=== PATIENT | male | born 1990 | race Caucasian/White ===

== ENCOUNTER 2016-08-16 21:57 | Emergency (ER) | payer BC, OTHER ==
[2016-08-16] MEDS ORDERED: PANTOPRAZOLE 40MG INJ (PROTONIX) (C9113) As Ordered ONE (23:08)
[2016-08-16] MEDS ORDERED: ONDANSETRON 4MG/2ML VIAL (J2405) As Ordered ONE (23:08)
[2016-08-16 23:32] LABS: BASO % 0.1 % (0.0-1.0); EOS # 0.2 K/mm3 (0.0-0.50); EOS % 1.4 % (0.0-3.0); LARGE UNSTAINED CELL # 0.1 K/mm3 (0.0-0.4); LARGE UNSTAINED CELL % 0.6 % (0.0-4.0); LYMPH # 1.2 K/mm3 (1.5-6.5); LYMPH % 7.6 % (24.0-44.0); MEAN CORPUSCULAR HEMOGLOBIN 30.4 pg (27.0-33.0); MEAN CORPUSCULAR HGB CONC 33.9 g/dl (32.0-36.5); MEAN CORPUSCULAR VOLUME 89.7 fl (80.0-96.0); MONO # 0.5 K/mm3 (0.0-0.8); MONO % 3.5 % (0.0-5.0); NEUTROPHILS # 12.3 K/mm3 (1.8-7.7); NEUTROPHILS % 86.8 % (36.0-66.0); PLATELET COUNT, AUTOMATED 259 k/mm3 (150-450); RED CELL DISTRIBUTION WIDTH 12.7 % (11.5-14.5); WHITE BLOOD COUNT 14.2 K/mm3 (4.0-10.0)
[2016-08-17] LABS: ALBUMIN 4.3 GM/DL (3.2-5.2); ALBUMIN/GLOBULIN RATIO 1.13 (1.00-1.93); ALKALINE PHOSPHATASE 71 U/L (45-117); ALT/SGPT 45 U/L (12-78); AMYLASE 58 U/L (25-115); ANION GAP 8 MEQ/L (8-16); AST/SGOT 20 U/L (15-37); BILIRUBIN,DIRECT 0.1 MG/DL (0.0-0.2); BILIRUBIN,TOTAL 0.5 MG/DL (0.2-1.0); BLOOD UREA NITROGEN 14 MG/DL (7-18); CARBON DIOXIDE LEVEL 28 MEQ/L (21-32); CHLORIDE LEVEL 105 MEQ/L (98-107); CREATININE FOR GFR 0.89 MG/DL (0.70-1.30); GLOMERULAR FILTRATION RATE > 60.0 (>60); GLUCOSE, FASTING 112 MG/DL (70-105); POTASSIUM SERUM 3.6 MEQ/L (3.5-5.1); SODIUM LEVEL 141 MEQ/L (136-145); TOTAL PROTEIN 8.1 GM/DL (6.4-8.2)
--- NOTE | 2016-08-17 01:17 | EDDOCDS ---
Physician Documentation [facility] Name: Kaushik Rodriguez Age: 25 yrs Sex: Male : 1990 Arrival Date: 08/16/2016 Time: 21:57 Bed 8 Private MD: NO PRIMARY PHYSICIAN, . Disposition: 08/17/16 01:03 Discharged to Home/Self Care. Impression: Other abdominal pain, Diarrhea, unspecified. - Condition is Stable. - Discharge Instructions: Abdominal Pain, Adult, Food Choices to Help Relieve Diarrhea, Adult, Diarrhea. - Prescriptions for Prilosec 20 mg Oral Capsule - take 1 capsule by ORAL route once daily; 10 capsule. ZOFRAN ODT 4 mg - dissolve 1 tablet by ORAL route 4 times per day As needed do not chew, do not swallow whole; 10 tablet. - Medication Reconciliation, Local Pharmacy Hours form. - Follow up: Private Physician; When: 2 - 3 days; Reason: Recheck today's complaints, Continuance of care. - Problem is new. - Symptoms have improved. - Notes: USE MEDICATIONS INSTRUCTED, FOLLOW UP WITH YOUR DOCTOR, RETURN TO THE ER IF THE SYMPTOMS WORSEN OR BECOME CONCERNING, FOLLOW UP WITH YOUR DOCTOR IN 2-3 DAYS Historical: - Allergies: no known allergies; - Home Meds: 1. Tylenol 325 mg Oral tab - PMHx: none; - PSHx: gynomastia surgery; - Social history: Smoking status: Patient states was never smoker of tobacco. No barriers to communication noted, The patient speaks fluent Anguillan. - Family history: Pt reports contact with co-workers with recent GI illness.. - : The pt / caregiver states he / she is not on anticoagulants. Home medication list is obtained from the patient. - Exposure Risk Screening:: None identified. Vital Signs: 08/16 21:59 BP 135 / 66; Pulse 67; Resp 18; Temp 97.6(O); Pulse Ox 100% on R/A; Weight 97.52 kg / ct3 214.99 lbs (R); Height 6 ft. 0 in. (182.88 cm) (R); Pain 10/10; 22:42 BP 127 / 73 (auto/); mv5 22:43 Pulse 60 MON; Pulse Ox 100% ; mv5 23:12 BP 116 / 68 (auto/); mv5 23:13 Pulse 58 MON; Pulse Ox 96% ; mv5 23:49 BP 127 / 71 (auto/); mv5 23:50 Pulse 58 MON; Pulse Ox 97% ; mv5 08/17 00:44 BP 129 / 73 Supine; Pulse 73; Resp 16; Temp 98.6(TE); Pulse Ox 98% ; mv5 00:44 BP 125 / 72 Sitting; Pulse 81; Pulse Ox 100% ; mv5 00:44 BP 112 / 69 Standing; Pulse 85; Pulse Ox 98% ; mv5 08/16 21:59 Body Mass Index 29.16 (97.52 kg, 182.88 cm) ct3 MDM: 08/16 23:05 Undress patient appropriately for examination ordered. ck7 23:05 IV Saline Lock ordered. ck7 23:05 NS 0.9% 1000 ml IV at bolus once ordered. ck7 23:05 Ondansetron 4 mg IVP once ordered. ck7 23:05 pantoprazole 40 mg IV at bolus once ordered. ck7 23:06 Amylase Ordered. EDMS 23:06 Basic Metabolic Profile Ordered. EDMS 23:06 CBC with Diff Ordered. EDMS 23:06 Lipase Ordered. EDMS 23:06 Liver Profile Ordered. EDMS 23:06 Urinalysis Ordered. EDMS 23:06 Urine Culture Ordered. EDMS 23:06 Abdomen 2 View Ordered. EDMS 23:07 NOTHING BY MOUTH+DIET ordered. EDMS 08/17 00:06 Basic Metabolic Profile Reviewed. ck7 00:06 CBC with Diff Reviewed. ck7 00:06 Urinalysis Reviewed. ck7 00:06 Amylase Reviewed. ck7 00:06 Lipase Reviewed. ck7 00:06 Liver Profile Reviewed. ck7 00:27 Orthostatic VS ordered. ck7 00:27 Fluid Challenge ordered. ck7 01:05 Financial registration complete. [facility] Administered Medications: 08/16 23:23 Drug: NS 0.9% 1000 ml [sodium chloride 0.9 % intravenous solution] Route: IV; Rate: mv5 bolus; Site: right antecubital; 23:23 Drug: Ondansetron 4 mg [ondansetron HCl 2 mg/mL intravenous solution (2 mL)] Route: mv5 IVP; Site: right antecubital; 23:53 Follow up: Response: No Adverse Reaction mv5 23:23 Drug: pantoprazole 40 mg [pantoprazole 40 mg intravenous solution] Route: IV; Rate: mv5 bolus; Site: right antecubital; 23:53 Follow up: Response: No Adverse Reaction mv5 Signatures: Dispatcher [employer] Dulce Kellogg RN RN rs3 Boston Enriquez, RPA-C RPA-Cck7 Belkis Fam Megan, RN RN mv5 MTDD
--- NOTE | 2016-08-17 01:17 | EDDOCDS ---
Nurse's Notes [facility] Name: Kaushik Rodriguez Age: 25 yrs Sex: Male : 1990 Arrival Date: 08/16/2016 Time: 21:57 Bed 8 Private MD: NO PRIMARY PHYSICIAN, . Diagnosis: Other abdominal pain;Diarrhea, unspecified Presentation: 08/16 22:08 Presenting complaint: Patient states: woke up with diarrhea and abdominal pain this rs3 morning. no vomiting. Risk factors: the patient reports not having a history of previous torsion. Adult Sepsis Screening: The patient does not have new or worsening altered mentation. Patient's respiratory rate is less than 22. Systolic blood pressure is greater than 100. Patient has a qSOFA score of 0- Negative Sepsis Screen. Suicide/Homicide risk assessment- the patient denies having any suicidal and/or homicidal ideations and does not present with any other emotional, behavioral or mental health complaints. Status: Patient is not a health services administrator or dependent. Transition of care: patient was not received from another setting of care. 22:08 Acuity: ADEEL Level 3 rs3 22:08 Method Of Arrival: Walkin/Carried/Asstd rs3 Triage Assessment: 22:10 General: Appears in no apparent distress. Pain: Location: abdomen. HIV screening NA for rs3 this visit Offered previously. GI: Reports lower abdominal pain. Historical: - Allergies: no known allergies; - Home Meds: 1. Tylenol 325 mg Oral tab - PMHx: none; - PSHx: gynomastia surgery; - Social history: Smoking status: Patient states was never smoker of tobacco. No barriers to communication noted, The patient speaks fluent Armenian. - Family history: Pt reports contact with co-workers with recent GI illness.. - : The pt / caregiver states he / she is not on anticoagulants. Home medication list is obtained from the patient. - Exposure Risk Screening:: None identified. Screenin:46 Screening information is obtained from the patient. Fall risk: No risks identified. mv5 Assistance ADL's: requires no assistance with activities of daily living. Abuse/DV Screen: The patient / caregiver reports he/she is: not in a situation that causes fear, pain or injury. Nutritional screening: No deficits noted. Advance Directives: There is no active DNR order. home support is adequate. Assessment: 22:46 General: Appears in no apparent distress, well nourished, well groomed. Pain: Location: mv5 right upper quadrant and left upper quadrant Pain currently is 6 out of 10 on a pain scale. Neurological: Level of Consciousness is awake, alert, Oriented to person, place, time. Cardiovascular: Capillary refill < 3 seconds. Respiratory: Airway is patent Respiratory effort is even, unlabored, Respiratory pattern is regular, symmetrical. GI: Abdomen is flat, Pt is actively vomiting Bowel sounds present X 4 quads. Abd is soft X 4 quads Abd is tender to palpation in right upper quadrant and left upper quadrant. : No deficits noted. Derm: Skin is pink, warm & dry. 23:29 General: Appears in no apparent distress, Meds given as ordered. Pt to xray and mv5 returned without incident. Family at bedside.. Respiratory: No deficits noted. Derm: Skin is pink, warm & dry. 08/17 00:58 General: Appears in no apparent distress, Provider in to discuss findings and plan of mv5 care.. Neurological: Level of Consciousness is awake, alert. Respiratory: Airway is patent Respiratory effort is even, unlabored, Respiratory pattern is regular, symmetrical. Derm: Skin is pink, warm & dry. Vital Signs: 08/16 21:59 BP 135 / 66; Pulse 67; Resp 18; Temp 97.6(O); Pulse Ox 100% on R/A; Weight 97.52 kg ct3 (R); Height 6 ft. 0 in. (182.88 cm) (R); Pain 10/10; 22:42 BP 127 / 73 (auto/); mv5 22:43 Pulse 60 MON; Pulse Ox 100% ; mv5 23:12 BP 116 / 68 (auto/); mv5 23:13 Pulse 58 MON; Pulse Ox 96% ; mv5 23:49 BP 127 / 71 (auto/); mv5 23:50 Pulse 58 MON; Pulse Ox 97% ; mv5 08/17 00:44 BP 129 / 73 Supine; Pulse 73; Resp 16; Temp 98.6(TE); Pulse Ox 98% ; mv5 00:44 BP 125 / 72 Sitting; Pulse 81; Pulse Ox 100% ; mv5 00:44 BP 112 / 69 Standing; Pulse 85; Pulse Ox 98% ; mv5 08/16 21:59 Body Mass Index 29.16 (97.52 kg, 182.88 cm) ct3 Vitals: 02 21:59 Log In Time: August 16, 2016 at 21:57. ct3 ED Course: 21:58 Patient visited by Trudy López PCA. ct3 21:58 Patient moved to Waiting ct3 21:59 NO PRIMARY PHYSICIAN, . is Private Physician. ct3 21:59 Patient moved to Pre RCE ct3 22:09 Triage Initiated rs3 22:36 Annette Pelaez RN is Primary Nurse. kc3 22:36 Linn Villeda RN is Primary Nurse. kc3 22:36 Patient moved to 8 kc3 22:40 Boston Enriquez RPA-C is PHCP. ck7 22:40 Tawanda Panda DO is Attending Physician. ck7 22:46 Patient visited by Linn Villeda RN. mv5 22:46 The patient / caregiver is instructed regarding the plan of care and ED course. mv5 22:47 Primary Nurse role handed off by Annette Pelaez RN ar3 22:47 Patient visited by Boston Enriquez RPA-C. ck7 23:24 Amylase Sent. mv5 23:24 Basic Metabolic Profile Sent. mv5 23:24 CBC with Diff Sent. mv5 23:24 Lipase Sent. mv5 23:24 Liver Profile Sent. mv5 23:24 Inserted saline lock: 18 gauge in right antecubital area and blood collected. The mv5 patient tolerated the procedure well. 23:29 Patient visited by Linn Villeda RN. mv5 23:53 Urinalysis Sent. mv5 23:53 Urine Culture Sent. mv5 08/17 00:04 Patient visited by Boston Enriquez RPA-C. ck7 00:37 Patient visited by Lukasz Charles PCA. mdr 00:37 Diet: Patient given water. mdr 01:14 Discontinued intact, bleeding controlled, pressure dressing applied, No mv5 redness/swelling at site. No procedures done that require assistance. Administered Medications: 08/16 23:23 Drug: NS 0.9% 1000 ml [sodium chloride 0.9 % intravenous solution] Route: IV; Rate: mv5 bolus; Site: right antecubital; 23:23 Drug: Ondansetron 4 mg [ondansetron HCl 2 mg/mL intravenous solution (2 mL)] Route: mv5 IVP; Site: right antecubital; 23:53 Follow up: Response: No Adverse Reaction mv5 23:23 Drug: pantoprazole 40 mg [pantoprazole 40 mg intravenous solution] Route: IV; Rate: mv5 bolus; Site: right antecubital; 23:53 Follow up: Response: No Adverse Reaction mv5 Order Results: Lab Order: Amylase; SPEC'M 08/16/16 23:20 Test: AMYLASE; Value: 58; Range: 25-115; Units: U/L; Status: F Lab Order: Basic Metabolic Profile; SPEC'M 08/16/16 23:20 Test: GLUCOSE, FASTING; Value: 112; Range: 70-105; Abnormal: Above high normal; Units: MG/DL; Status: F Test: BLOOD UREA NITROGEN; Value: 14; Range: 7-18; Units: MG/DL; Status: F Test: CREATININE FOR GFR; Value: 0.89; Range: 0.70-1.30; Units: MG/DL; Status: F Test: GLOMERULAR FILTRATION RATE; Value: > 60.0; Range: >60; Status: F Test: SODIUM LEVEL; Value: 141; Range: 136-145; Units: MEQ/L; Status: F Test: POTASSIUM SERUM; Value: 3.6; Range: 3.5-5.1; Units: MEQ/L; Status: F Test: CHLORIDE LEVEL; Value: 105; Range: 98-107; Units: MEQ/L; Status: F Test: CARBON DIOXIDE LEVEL; Value: 28; Range: 21-32; Units: MEQ/L; Status: F Test: ANION GAP; Value: 8; Range: 8-16; Units: MEQ/L; Status: F Test: CALCIUM LEVEL; Value: 9.0; Range: 8.5-10.1; Units: MG/DL; Status: F Test Note: ; Units are mL/min/1.73 m2 Chronic Kidney Disease Staging per NKF: Stage I & II GFR >=60 Normal to Mildly Decreased Stage III GFR 30-59 Moderately Decreased Stage IV GFR 15-29 Severely Decreased Stage V GFR <15 Very Little GFR Left ESRD GFR <15 on OBSTETRICS SCRUB NURSE Lab Order: CBC with Diff; SPEC'M 08/16/16 23:20 Test: WHITE BLOOD COUNT; Value: 14.2; Range: 4.0-10.0; Abnormal: Above high normal; Units: K/mm3; Status: F Test: RED BLOOD COUNT; Value: 5.22; Range: 4.30-6.10; Units: M/mm3; Status: F Test: HEMOGLOBIN; Value: 15.9; Range: 14.0-18.0; Units: g/dl; Status: F Test: HEMATOCRIT; Value: 46.8; Range: 42.0-52.0; Units: %; Status: F Test: MEAN CORPUSCULAR VOLUME; Value: 89.7; Range: 80.0-96.0; Units: fl; Status: F Test: MEAN CORPUSCULAR HEMOGLOBIN; Value: 30.4; Range: 27.0-33.0; Units: pg; Status: F Test: MEAN CORPUSCULAR HGB CONC; Value: 33.9; Range: 32.0-36.5; Units: g/dl; Status: F Test: RED CELL DISTRIBUTION WIDTH; Value: 12.7; Range: 11.5-14.5; Units: %; Status: F Test: PLATELET COUNT, AUTOMATED; Value: 259; Range: 150-450; Units: k/mm3; Status: F Test: NEUTROPHILS %; Value: 86.8; Range: 36.0-66.0; Abnormal: Above high normal; Units: %; Status: F Test: LYMPH %; Value: 7.6; Range: 24.0-44.0; Abnormal: Below low normal; Units: %; Status: F Test: MONO %; Value: 3.5; Range: 0.0-5.0; Units: %; Status: F Test: EOS %; Value: 1.4; Range: 0.0-3.0; Units: %; Status: F Test: BASO %; Value: 0.1; Range: 0.0-1.0; Units: %; Status: F Test: LARGE UNSTAINED CELL %; Value: 0.6; Range: 0.0-4.0; Units: %; Status: F Test: NEUTROPHILS #; Value: 12.3; Range: 1.8-7.7; Abnormal: Above high normal; Units: K/mm3; Status: F Test: LYMPH #; Value: 1.2; Range: 1.5-6.5; Abnormal: Below low normal; Units: K/mm3; Status: F Test: MONO #; Value: 0.5; Range: 0.0-0.8; Units: K/mm3; Status: F Test: EOS #; Value: 0.2; Range: 0.0-0.50; Units: K/mm3; Status: F Test: BASO #; Value: 0.0; Range: 0.0-0.2; Units: K/mm3; Status: F Test: LARGE UNSTAINED CELL #; Value: 0.1; Range: 0.0-0.4; Units: K/mm3; Status: F Lab Order: Lipase; [facility] 08/16/16 23:20 Test: LIPASE; Value: 88; Range: 73-393; Units: U/L; Status: F Lab Order: Liver Profile; [facility] 08/16/16 23:20 Test: AST/SGOT; Value: 20; Range: 15-37; Units: U/L; Status: F Test: ALT/SGPT; Value: 45; Range: 12-78; Units: U/L; Status: F Test: ALKALINE PHOSPHATASE; Value: 71; Range: 45-117; Units: U/L; Status: F Test: BILIRUBIN,TOTAL; Value: 0.5; Range: 0.2-1.0; Units: MG/DL; Status: F Test: BILIRUBIN,DIRECT; Value: 0.1; Range: 0.0-0.2; Units: MG/DL; Status: F Test: TOTAL PROTEIN; Value: 8.1; Range: 6.4-8.2; Units: GM/DL; Status: F Test: ALBUMIN; Value: 4.3; Range: 3.2-5.2; Units: GM/DL; Status: F Test: ALBUMIN/GLOBULIN RATIO; Value: 1.13; Range: 1.00-1.93; Status: F Lab Order: Urinalysis; [facility] 08/16/16 23:20 Test: APPEARANCE, URINE; Value: HAZY; Range: CLEAR; Status: F Test: COLOR, URINE; Value: YELLOW; Range: YELLOW; Status: F Test: PH,URINE; Value: 5.0; Range: 5.0-9.0; Units: UNITS; Status: F Test: SPECIFIC GRAVITY URINE AUTO; Value: 1.027; Range: 1.002-1.035; Status: F Test: PROTEIN, URINE AUTO; Value: NEGATIVE; Range: NEGATIVE; Units: mg/dL; Status: F Test: GLUCOSE, URINE (UA) AUTO; Value: NEGATIVE; Range: NEGATIVE; Units: mg/dL; Status: F Test: KETONE, URINE AUTO; Value: 1+; Range: NEGATIVE; Abnormal: Above high normal; Units: mg/dL; Status: F Test: UROBILINOGEN, URINE AUTO; Value: 0.2; Range: 0.0-2.0; Units: mg/dL; Status: F Test: BILIRUBIN, URINE AUTO; Value: NEGATIVE; Range: NEGATIVE; Status: F Test: NITRITE, URINE AUTO; Value: NEGATIVE; Range: NEGATIVE; Status: F Test: LEUKOCYTE ESTERASE, URINE AUTO; Value: NEGATIVE; Range: NEGATIVE; Status: F Test: BLOOD, URINE BLOOD; Value: 1+; Range: NEGATIVE; Abnormal: Above high normal; Status: F Test: WBC, URINE AUTO; Value: 5; Range: 0-3; Abnormal: Above high normal; Units: /HPF; Status: F Test: RBC, URINE AUTO; Value: 2; Range: 0-3; Units: /HPF; Status: F Test: BACTERIA, URINE AUTO; Value: NEGATIVE; Range: NEGATIVE; Status: F Test: SQUAMOUS EPITHELIAL CELL UR AU; Value: 0; Range: 0-6; Units: /HPF; Status: F Test: MUCUS, URINE; Value: MODERATE; Range: NEGATIVE; Status: F Test: HYALINE CAST, URINE AUTO; Value: 0; Range: 0-1; Units: /LPF; Status: F Outcome: 08/17 01:03 Discharge ordered by Provider. ck7 01:14 Discharge Assessment: Patient awake, alert and oriented x 3. No cognitive and/or mv5 functional deficits noted. Patient verbalized understanding of disposition instructions. patient administered narcotics - no. The following High Risk Discharge criteria are identified: None. Discharged to home. Condition: stable. Demonstrated understanding of Pt was receptive of discharge instructions/ teaching. No special radiology studies were completed. Property sent home with patient. 01:16 Patient left the ED. mv5 Signatures: Dulce Xiong,RN RN rs3 Lilia Herzog, CAFE WORKER CAFE WORKER ar3 López, Trudy, CAFE WORKER CAFE WORKER ct3 Boston Enriquez, RPA-C RPA-Cck7 Lukasz Charles, CAFE WORKER CAFE WORKER mdr Bonnie Hopkins,RN RN kc3 Linn Villeda,RN RN mv5 MTDD
[2016-08-17] MEDS ORDERED: diphenhydrAMINE INJ 50MG/ML VIAL (J1200) As Ordered ONE (01:29)
[2016-08-17] MEDS ORDERED: FAMOTIDINE INJ 20MG/2ML VIAL (S0028) As Ordered ONE (01:29)
[2016-08-17] MEDS ORDERED: methylPREDNISolone INJ 125 MG/2 ML VIAL (J2930) As Ordered ONE (01:29)
--- NOTE | 2016-08-17 02:50 | EDDOCDS ---
Physician Documentation [facility] Name: Kaushik Rodriguez Age: 25 yrs Sex: Male : 1990 Arrival Date: 08/16/2016 Time: 21:57 Bed 8 Private MD: NO PRIMARY PHYSICIAN, . Disposition: 08/17/16 02:38 Discharged to Home/Self Care. Impression: Other abdominal pain, Nausea and vomiting, Diarrhea, unspecified, Allergy status to unspecified drugs, medicaments and biological substances status. - Condition is Stable. - Discharge Instructions: Abdominal Pain, Adult, Food Choices to Help Relieve Diarrhea, Adult, Drug Allergy, Nausea and Vomiting. - Prescriptions for Prilosec 20 mg Oral Capsule - take 1 capsule by ORAL route once daily; 10 capsule. ZOFRAN ODT 4 mg - dissolve 1 tablet by ORAL route 4 times per day As needed do not chew, do not swallow whole; 10 tablet. Prednisone 20 mg Oral Tablet - take 2 tablet by ORAL route once daily for 5 days; 10 tablet. - Medication Reconciliation, Local Pharmacy Hours form. - Follow up: Private Physician; When: 2 - 3 days; Reason: Recheck today's complaints, Continuance of care. - Problem is new. - Symptoms have improved. - Notes: USE PREDNISONE INSTRUCTED, DO NOT USE ZOFRAN WE DO NOT KNOW WHAT MEDICATION YOU HAD YOUR REACTION TO. FOLLOW UP WITH YOUR DOCTOR, RETURN TO THE ER IF THE SYMPTOMS WORSEN OR BECOME CONCERNING, FOLLOW UP WITH YOUR DOCTOR IN 2-3 DAYS Historical: - Allergies: no known allergies; - Home Meds: 1. Tylenol 325 mg Oral tab - PMHx: none; - PSHx: gynomastia surgery; - Social history: Smoking status: Patient states was never smoker of tobacco. No barriers to communication noted, The patient speaks fluent Polish. - Family history: Pt reports contact with co-workers with recent GI illness.. - : The pt / caregiver states he / she is not on anticoagulants. Home medication list is obtained from the patient. - Exposure Risk Screening:: None identified. Vital Signs: 08/16 21:59 BP 135 / 66; Pulse 67; Resp 18; Temp 97.6(O); Pulse Ox 100% on R/A; Weight 97.52 kg / ct3 214.99 lbs (R); Height 6 ft. 0 in. (182.88 cm) (R); Pain 10/10; 22:42 BP 127 / 73 (auto/); mv5 22:43 Pulse 60 MON; Pulse Ox 100% ; mv5 23:12 BP 116 / 68 (auto/); mv5 23:13 Pulse 58 MON; Pulse Ox 96% ; mv5 23:49 BP 127 / 71 (auto/); mv5 23:50 Pulse 58 MON; Pulse Ox 97% ; mv5 02 00:44 BP 129 / 73 Supine; Pulse 73; Resp 16; Temp 98.6(TE); Pulse Ox 98% ; mv5 00:44 BP 125 / 72 Sitting; Pulse 81; Pulse Ox 100% ; mv5 00:44 BP 112 / 69 Standing; Pulse 85; Pulse Ox 98% ; mv5 00:49 BP 114 / 69 (auto/); mv5 00:50 Pulse 66 MON; Pulse Ox 93% ; mv5 01:33 BP 107 / 58 (auto/); mv5 01:34 Pulse 66 MON; Pulse Ox 96% ; mv5 02:03 BP 111 / 59 (auto/); mv5 02:04 Pulse 58 MON; Pulse Ox 99% ; mv5 02:33 BP 123 / 67 (auto/); mv5 02:33 Pulse 62 MON; Pulse Ox 99% ; mv5 02:41 Temp 98.5(TE); Pain 4/10; mdr 08/16 21:59 Body Mass Index 29.16 (97.52 kg, 182.88 cm) ct3 MDM: 08/16 23:05 Undress patient appropriately for examination ordered. ck7 23:05 IV Saline Lock ordered. ck7 23:05 NS 0.9% 1000 ml IV at bolus once ordered. ck7 23:05 Ondansetron 4 mg IVP once ordered. ck7 23:05 pantoprazole 40 mg IV at bolus once ordered. ck7 23:06 Amylase Ordered. EDMS 23:06 Basic Metabolic Profile Ordered. EDMS 23:06 CBC with Diff Ordered. EDMS 23:06 Lipase Ordered. EDMS 23:06 Liver Profile Ordered. EDMS 23:06 Urinalysis Ordered. EDMS 23:06 Urine Culture Ordered. EDMS 23:06 Abdomen 2 View Ordered. EDMS 23:07 NOTHING BY MOUTH+DIET ordered. EDMS 08/17 00:06 Basic Metabolic Profile Reviewed. ck7 00:06 CBC with Diff Reviewed. ck7 00:06 Urinalysis Reviewed. ck7 00:06 Amylase Reviewed. ck7 00:06 Lipase Reviewed. ck7 00:06 Liver Profile Reviewed. ck7 00:27 Orthostatic VS ordered. ck7 00:27 Fluid Challenge ordered. ck7 01:05 Financial registration complete. [facility] 01:25 Solu-MEDROL 125 mg IVP once ordered. ck 01:25 diphenhydrAMINE 50 mg IVP once ordered. ck7 01:25 Famotidine 10 mg IVPB once over 30 mins; dilute in 50mL of NS ordered. ck7 01:25 NS 0.9% 500 ml IV at bolus once ordered. ck7 01:38 [facility] Payment Agreement was scanned into [employer] and attached to record. [facility] Administered Medications: 08/16 23:23 Drug: NS 0.9% 1000 ml [sodium chloride 0.9 % intravenous solution] Route: IV; Rate: mv5 bolus; Site: right antecubital; 08/17 01:17 Follow up: IV Status: Completed infusion mv5 08/16 23:23 Drug: Ondansetron 4 mg [ondansetron HCl 2 mg/mL intravenous solution (2 mL)] Route: mv5 IVP; Site: right antecubital; 23:53 Follow up: Response: No Adverse Reaction mv5 23:23 Drug: pantoprazole 40 mg [pantoprazole 40 mg intravenous solution] Route: IV; Rate: mv5 bolus; Site: right antecubital; 23:53 Follow up: Response: No Adverse Reaction 5 08/17 01:17 Follow up: IV Status: Completed infusion mv5 01:39 Drug: Famotidine 10 mg [famotidine 10 mg/mL intravenous solution] Route: IVPB; Infused mv5 Over: 30 mins; Site: left antecubital; 02:09 Follow up: IV Status: Completed infusion mv5 01:39 Drug: NS 0.9% 500 ml [sodium chloride 0.9 % intravenous solution] Route: IV; Rate: mv5 bolus; Site: left antecubital; 02:30 Follow up: IV Status: Completed infusion mv5 01:40 Drug: Solu-MEDROL 125 mg [Solu-Medrol 500 mg intravenous solution (125 mg)] Route: IVP; mv5 Site: left antecubital; 02:39 Follow up: Response: No Adverse Reaction mv5 01:40 Drug: diphenhydrAMINE 50 mg [diphenhydramine 50 mg/mL injection solution (1 mL)] Route: mv5 IVP; Site: left antecubital; 02:39 Follow up: Response: No Adverse Reaction mv5 Signatures: Dispatcher [employer] Dulce Kellogg RN RN rs3 [place] Enriquez, RPA-C RPA-Cck7 Belkis Fam Megan, RN RN mv5 The chart was reviewed and I authenticate all verbal orders and agree with the evaluation and treatment provided.Attachments: 01:38 [facility] Payment Agreement [facility] MTDD
--- NOTE | 2016-08-17 02:50 | EDDOCDS ---
Nurse's Notes [facility] Name: Kaushik Rodriguez Age: 25 yrs Sex: Male : 1990 Arrival Date: 08/16/2016 Time: 21:57 Bed 8 Private MD: NO PRIMARY PHYSICIAN, . Diagnosis: Other abdominal pain;Nausea and vomiting;Diarrhea, unspecified;Allergy status to unspecified drugs, medicaments and biological substances status Presentation: 08/16 22:08 Presenting complaint: Patient states: woke up with diarrhea and abdominal pain this rs3 morning. no vomiting. Risk factors: the patient reports not having a history of previous torsion. Adult Sepsis Screening: The patient does not have new or worsening altered mentation. Patient's respiratory rate is less than 22. Systolic blood pressure is greater than 100. Patient has a qSOFA score of 0- Negative Sepsis Screen. Suicide/Homicide risk assessment- the patient denies having any suicidal and/or homicidal ideations and does not present with any other emotional, behavioral or mental health complaints. Status: Patient is not a service director or dependent. Transition of care: patient was not received from another setting of care. 22:08 Acuity: ADEEL Level 3 rs3 22:08 Method Of Arrival: Walkin/Carried/Asstd rs3 Triage Assessment: 22:10 General: Appears in no apparent distress. Pain: Location: abdomen. HIV screening NA for rs3 this visit Offered previously. GI: Reports lower abdominal pain. Historical: - Allergies: no known allergies; - Home Meds: 1. Tylenol 325 mg Oral tab - PMHx: none; - PSHx: gynomastia surgery; - Social history: Smoking status: Patient states was never smoker of tobacco. No barriers to communication noted, The patient speaks fluent Cook Islander. - Family history: Pt reports contact with co-workers with recent GI illness.. - : The pt / caregiver states he / she is not on anticoagulants. Home medication list is obtained from the patient. - Exposure Risk Screening:: None identified. Screenin:46 Screening information is obtained from the patient. Fall risk: No risks identified. mv5 Assistance ADL's: requires no assistance with activities of daily living. Abuse/DV Screen: The patient / caregiver reports he/she is: not in a situation that causes fear, pain or injury. Nutritional screening: No deficits noted. Advance Directives: There is no active DNR order. home support is adequate. Assessment: 22:46 General: Appears in no apparent distress, well nourished, well groomed. Pain: Location: mv5 right upper quadrant and left upper quadrant Pain currently is 6 out of 10 on a pain scale. Neurological: Level of Consciousness is awake, alert, Oriented to person, place, time. Cardiovascular: Capillary refill < 3 seconds. Respiratory: Airway is patent Respiratory effort is even, unlabored, Respiratory pattern is regular, symmetrical. GI: Abdomen is flat, Pt is actively vomiting Bowel sounds present X 4 quads. Abd is soft X 4 quads Abd is tender to palpation in right upper quadrant and left upper quadrant. : No deficits noted. Derm: Skin is pink, warm & dry. 23:29 General: Appears in no apparent distress, Meds given as ordered. Pt to xray and mv5 returned without incident. Family at bedside.. Respiratory: No deficits noted. Derm: Skin is pink, warm & dry. 08/17 00:58 General: Appears in no apparent distress, Provider in to discuss findings and plan of mv5 care.. Neurological: Level of Consciousness is awake, alert. Respiratory: Airway is patent Respiratory effort is even, unlabored, Respiratory pattern is regular, symmetrical. Derm: Skin is pink, warm & dry. 01:40 General: Appears in no apparent distress. General: Upon dressing after discharge pt's mv5 noted redness and hives on pt's neck/chest and near axilla. Provider called to bedside. Orders received, meds given as ordered.. Respiratory: Airway is patent Respiratory effort is even, unlabored, Respiratory pattern is regular, symmetrical, Breath sounds are clear bilaterally. Derm: Rash noted that is itchy, Rash concentrated around neck/axilla/arms and pt reports on legs/groin. 02:13 General: Appears in no apparent distress, to be sleeping. Respiratory: Airway is patent mv5 Respiratory effort is even, unlabored, Respiratory pattern is regular, symmetrical. Derm: Skin is pink, warm & dry. Rash noted that is significantly improved. 02:36 General: Appears in no apparent distress, comfortable, Behavior is cooperative, mv5 pleasant. Neurological: Level of Consciousness is awake, alert. Respiratory: Airway is patent Respiratory effort is even, unlabored, Respiratory pattern is regular, symmetrical. Derm: No deficits noted. Vital Signs: 02/12 21:59 BP 135 / 66; Pulse 67; Resp 18; Temp 97.6(O); Pulse Ox 100% on R/A; Weight 97.52 kg ct3 (R); Height 6 ft. 0 in. (182.88 cm) (R); Pain 10/10; 22:42 BP 127 / 73 (auto/); mv5 22:43 Pulse 60 MON; Pulse Ox 100% ; mv5 23:12 BP 116 / 68 (auto/); mv5 23:13 Pulse 58 MON; Pulse Ox 96% ; mv5 23:49 BP 127 / 71 (auto/); mv5 23:50 Pulse 58 MON; Pulse Ox 97% ; mv5 02/13 00:44 BP 129 / 73 Supine; Pulse 73; Resp 16; Temp 98.6(TE); Pulse Ox 98% ; mv5 00:44 BP 125 / 72 Sitting; Pulse 81; Pulse Ox 100% ; mv5 00:44 BP 112 / 69 Standing; Pulse 85; Pulse Ox 98% ; mv5 00:49 BP 114 / 69 (auto/); mv5 00:50 Pulse 66 MON; Pulse Ox 93% ; mv5 01:33 BP 107 / 58 (auto/); mv5 01:34 Pulse 66 MON; Pulse Ox 96% ; mv5 02:03 BP 111 / 59 (auto/); mv5 02:04 Pulse 58 MON; Pulse Ox 99% ; mv5 02:33 BP 123 / 67 (auto/); mv5 02:33 Pulse 62 MON; Pulse Ox 99% ; mv5 02:41 Temp 98.5(TE); Pain 4/10; mdr 02/12 21:59 Body Mass Index 29.16 (97.52 kg, 182.88 cm) ct3 Vitals: 02/12 21:59 Log In Time: August 16, 2016 at 21:57. ct3 ED Course: 21:58 Patient visited by Trudy López PCA. ct3 21:58 Patient moved to Waiting ct3 21:59 NO PRIMARY PHYSICIAN, . is Private Physician. ct3 21:59 Patient moved to Pre RCE ct3 22:09 Triage Initiated rs3 22:36 Annette Pelaez, RN is Primary Nurse. kc3 22:36 Linn Villeda,WOLF is Primary Nurse. kc3 22:36 Patient moved to 8 kc3 22:40 Boston Enriquez RPA-C is PHCP. ck7 22:40 Tawanda Panda DO is Attending Physician. ck7 22:46 Patient visited by Linn Villeda RN. mv5 22:46 The patient / caregiver is instructed regarding the plan of care and ED course. mv5 22:47 Primary Nurse role handed off by Annette Pelaez RN ar3 22:47 Patient visited by Boston Enriquez RPA-C. ck7 23:24 Amylase Sent. mv5 23:24 Basic Metabolic Profile Sent. mv5 23:24 CBC with Diff Sent. mv5 23:24 Lipase Sent. mv5 23:24 Liver Profile Sent. mv5 23:24 Inserted saline lock: 18 gauge in right antecubital area and blood collected. The mv5 patient tolerated the procedure well. 23:29 Patient visited by Linn Villeda RN. mv5 23:53 Urinalysis Sent. mv5 23:53 Urine Culture Sent. mv5 0213 00:04 Patient visited by Boston Enriquez RPA-C. ck7 00:37 Patient visited by Lukasz Charles PCA. mdr 00:37 Diet: Patient given water. mdr 01:14 Discontinued intact, bleeding controlled, pressure dressing applied, No mv5 redness/swelling at site. No procedures done that require assistance. 01:38 [facility] Payment Agreement was scanned into [employer] and attached to record. [facility] 01:43 Patient name changed from Kaushik\S\\S\Leclaire\S\ to Kaushik\S\David\S\Leclaire. EDMS 01:43 Patient visited by Boston Enriquez RPA-C. ck7 01:56 Patient visited by Linn Villeda RN. mv5 02:04 Discontinued intact, bleeding controlled, pressure dressing applied, No mv5 redness/swelling at site. 02:26 Patient visited by Linn Villeda RN. mv5 02:41 Patient visited by Lukasz Charles PCA. mdr Administered Medications: 08/16 23:23 Drug: NS 0.9% 1000 ml [sodium chloride 0.9 % intravenous solution] Route: IV; Rate: mv5 bolus; Site: right antecubital; 08/17 01:17 Follow up: IV Status: Completed infusion mv5 08/16 23:23 Drug: Ondansetron 4 mg [ondansetron HCl 2 mg/mL intravenous solution (2 mL)] Route: mv5 IVP; Site: right antecubital; 23:53 Follow up: Response: No Adverse Reaction mv5 23:23 Drug: pantoprazole 40 mg [pantoprazole 40 mg intravenous solution] Route: IV; Rate: mv5 bolus; Site: right antecubital; 23:53 Follow up: Response: No Adverse Reaction mv5 08/17 01:17 Follow up: IV Status: Completed infusion mv5 01:39 Drug: Famotidine 10 mg [famotidine 10 mg/mL intravenous solution] Route: IVPB; Infused mv5 Over: 30 mins; Site: left antecubital; 02:09 Follow up: IV Status: Completed infusion mv5 01:39 Drug: NS 0.9% 500 ml [sodium chloride 0.9 % intravenous solution] Route: IV; Rate: mv5 bolus; Site: left antecubital; 02:30 Follow up: IV Status: Completed infusion mv5 01:40 Drug: Solu-MEDROL 125 mg [Solu-Medrol 500 mg intravenous solution (125 mg)] Route: IVP; mv5 Site: left antecubital; 02:39 Follow up: Response: No Adverse Reaction mv5 01:40 Drug: diphenhydrAMINE 50 mg [diphenhydramine 50 mg/mL injection solution (1 mL)] Route: mv5 IVP; Site: left antecubital; 02:39 Follow up: Response: No Adverse Reaction mv5 Order Results: Lab Order: Amylase; SPEC'M 08/16/16 23:20 Test: AMYLASE; Value: 58; Range: 25-115; Units: U/L; Status: F Lab Order: Basic Metabolic Profile; SPEC'M 08/16/16 23:20 Test: GLUCOSE, FASTING; Value: 112; Range: 70-105; Abnormal: Above high normal; Units: MG/DL; Status: F Test: BLOOD UREA NITROGEN; Value: 14; Range: 7-18; Units: MG/DL; Status: F Test: CREATININE FOR GFR; Value: 0.89; Range: 0.70-1.30; Units: MG/DL; Status: F Test: GLOMERULAR FILTRATION RATE; Value: > 60.0; Range: >60; Status: F Test: SODIUM LEVEL; Value: 141; Range: 136-145; Units: MEQ/L; Status: F Test: POTASSIUM SERUM; Value: 3.6; Range: 3.5-5.1; Units: MEQ/L; Status: F Test: CHLORIDE LEVEL; Value: 105; Range: 98-107; Units: MEQ/L; Status: F Test: CARBON DIOXIDE LEVEL; Value: 28; Range: 21-32; Units: MEQ/L; Status: F Test: ANION GAP; Value: 8; Range: 8-16; Units: MEQ/L; Status: F Test: CALCIUM LEVEL; Value: 9.0; Range: 8.5-10.1; Units: MG/DL; Status: F Test Note: ; Units are mL/min/1.73 m2 Chronic Kidney Disease Staging per NKF: Stage I & II GFR >=60 Normal to Mildly Decreased Stage III GFR 30-59 Moderately Decreased Stage IV GFR 15-29 Severely Decreased Stage V GFR <15 Very Little GFR Left ESRD GFR <15 on STORE CONSULTANT Lab Order: CBC with Diff; SPEC'M 08/16/16 23:20 Test: WHITE BLOOD COUNT; Value: 14.2; Range: 4.0-10.0; Abnormal: Above high normal; Units: K/mm3; Status: F Test: RED BLOOD COUNT; Value: 5.22; Range: 4.30-6.10; Units: M/mm3; Status: F Test: HEMOGLOBIN; Value: 15.9; Range: 14.0-18.0; Units: g/dl; Status: F Test: HEMATOCRIT; Value: 46.8; Range: 42.0-52.0; Units: %; Status: F Test: MEAN CORPUSCULAR VOLUME; Value: 89.7; Range: 80.0-96.0; Units: fl; Status: F Test: MEAN CORPUSCULAR HEMOGLOBIN; Value: 30.4; Range: 27.0-33.0; Units: pg; Status: F Test: MEAN CORPUSCULAR HGB CONC; Value: 33.9; Range: 32.0-36.5; Units: g/dl; Status: F Test: RED CELL DISTRIBUTION WIDTH; Value: 12.7; Range: 11.5-14.5; Units: %; Status: F Test: PLATELET COUNT, AUTOMATED; Value: 259; Range: 150-450; Units: k/mm3; Status: F Test: NEUTROPHILS %; Value: 86.8; Range: 36.0-66.0; Abnormal: Above high normal; Units: %; Status: F Test: LYMPH %; Value: 7.6; Range: 24.0-44.0; Abnormal: Below low normal; Units: %; Status: F Test: MONO %; Value: 3.5; Range: 0.0-5.0; Units: %; Status: F Test: EOS %; Value: 1.4; Range: 0.0-3.0; Units: %; Status: F Test: BASO %; Value: 0.1; Range: 0.0-1.0; Units: %; Status: F Test: LARGE UNSTAINED CELL %; Value: 0.6; Range: 0.0-4.0; Units: %; Status: F Test: NEUTROPHILS #; Value: 12.3; Range: 1.8-7.7; Abnormal: Above high normal; Units: K/mm3; Status: F Test: LYMPH #; Value: 1.2; Range: 1.5-6.5; Abnormal: Below low normal; Units: K/mm3; Status: F Test: MONO #; Value: 0.5; Range: 0.0-0.8; Units: K/mm3; Status: F Test: EOS #; Value: 0.2; Range: 0.0-0.50; Units: K/mm3; Status: F Test: BASO #; Value: 0.0; Range: 0.0-0.2; Units: K/mm3; Status: F Test: LARGE UNSTAINED CELL #; Value: 0.1; Range: 0.0-0.4; Units: K/mm3; Status: F Lab Order: Lipase; SPEC' 08/16/16 23:20 Test: LIPASE; Value: 88; Range: 73-393; Units: U/L; Status: F Lab Order: Liver Profile; SPEC' 08/16/16 23:20 Test: AST/SGOT; Value: 20; Range: 15-37; Units: U/L; Status: F Test: ALT/SGPT; Value: 45; Range: 12-78; Units: U/L; Status: F Test: ALKALINE PHOSPHATASE; Value: 71; Range: 45-117; Units: U/L; Status: F Test: BILIRUBIN,TOTAL; Value: 0.5; Range: 0.2-1.0; Units: MG/DL; Status: F Test: BILIRUBIN,DIRECT; Value: 0.1; Range: 0.0-0.2; Units: MG/DL; Status: F Test: TOTAL PROTEIN; Value: 8.1; Range: 6.4-8.2; Units: GM/DL; Status: F Test: ALBUMIN; Value: 4.3; Range: 3.2-5.2; Units: GM/DL; Status: F Test: ALBUMIN/GLOBULIN RATIO; Value: 1.13; Range: 1.00-1.93; Status: F Lab Order: Urinalysis; SPEC'M 08/16/16 23:20 Test: APPEARANCE, URINE; Value: HAZY; Range: CLEAR; Status: F Test: COLOR, URINE; Value: YELLOW; Range: YELLOW; Status: F Test: PH,URINE; Value: 5.0; Range: 5.0-9.0; Units: UNITS; Status: F Test: SPECIFIC GRAVITY URINE AUTO; Value: 1.027; Range: 1.002-1.035; Status: F Test: PROTEIN, URINE AUTO; Value: NEGATIVE; Range: NEGATIVE; Units: mg/dL; Status: F Test: GLUCOSE, URINE (UA) AUTO; Value: NEGATIVE; Range: NEGATIVE; Units: mg/dL; Status: F Test: KETONE, URINE AUTO; Value: 1+; Range: NEGATIVE; Abnormal: Above high normal; Units: mg/dL; Status: F Test: UROBILINOGEN, URINE AUTO; Value: 0.2; Range: 0.0-2.0; Units: mg/dL; Status: F Test: BILIRUBIN, URINE AUTO; Value: NEGATIVE; Range: NEGATIVE; Status: F Test: NITRITE, URINE AUTO; Value: NEGATIVE; Range: NEGATIVE; Status: F Test: LEUKOCYTE ESTERASE, URINE AUTO; Value: NEGATIVE; Range: NEGATIVE; Status: F Test: BLOOD, URINE BLOOD; Value: 1+; Range: NEGATIVE; Abnormal: Above high normal; Status: F Test: WBC, URINE AUTO; Value: 5; Range: 0-3; Abnormal: Above high normal; Units: /HPF; Status: F Test: RBC, URINE AUTO; Value: 2; Range: 0-3; Units: /HPF; Status: F Test: BACTERIA, URINE AUTO; Value: NEGATIVE; Range: NEGATIVE; Status: F Test: SQUAMOUS EPITHELIAL CELL UR AU; Value: 0; Range: 0-6; Units: /HPF; Status: F Test: MUCUS, URINE; Value: MODERATE; Range: NEGATIVE; Status: F Test: HYALINE CAST, URINE AUTO; Value: 0; Range: 0-1; Units: /LPF; Status: F Outcome: 01:03 Discharge ordered by Provider. ck7 01:14 Discharge Assessment: Patient awake, alert and oriented x 3. No cognitive and/or mv5 functional deficits noted. Patient verbalized understanding of disposition instructions. patient administered narcotics - no. The following High Risk Discharge criteria are identified: None. Discharged to home. Condition: stable. Demonstrated understanding of Pt was receptive of discharge instructions/ teaching. No special radiology studies were completed. Property sent home with patient. 02:38 Discharge ordered by Provider. ck7 02:48 Discharge Assessment: Patient awake, alert and oriented x 3. No cognitive and/or mv5 functional deficits noted. Patient verbalized understanding of disposition instructions. patient administered narcotics - no. The following High Risk Discharge criteria are identified: None. Discharged to home with family. Condition: stable. Demonstrated understanding of Pt was receptive of discharge instructions/ teaching. No special radiology studies were completed. Property sent home with patient. 02:49 Patient left the ED. mv5 Signatures: Dispatcher [employer] EDMS Dulce XiongRN RN rs3 Lilia Herzog, SERVICER TRAVEL TRAILERS SERVICER TRAVEL TRAILERS ar3 Trudy López, SERVICER TRAVEL TRAILERS SERVICER TRAVEL TRAILERS ct3 Boston Enriquez, MILLI-C [id number] Belkis Fam [facility] Lukasz Charles, SERVICER TRAVEL TRAILERS SERVICER TRAVEL TRAILERS Bonnie Arroyo RN RN kc3 Linn Villeda,RN RN mv5 Corrections: (The following items were deleted from the chart) 02:38 01:16 Patient left the ED. mv5 mv5 MTDD
--- NOTE | 2016-08-17 08:08 | REP ---
Clinical: Acute abdominal pain. Technique: Upright view of the chest with supine and upright views of the abdomen and pelvis. Findings: Frontal upright view of the chest demonstrates no acute cardiopulmonary process or free air below the diaphragm to suspect pneumoperitoneum. Supine and upright views of the abdomen and pelvis demonstrate nonspecific bowel gas pattern without obstruction or perforation. No organomegaly. No abnormal calcifications. Skeletal structures normal for age. Impression: Nonspecific bowel gas pattern. Signed by Ozzie Barragan MD 08/17/2016 07:59 A
--- NOTE | 2016-08-19 03:50 | EDDOCDS ---
Physician Documentation [facility] Name: Kaushik Rodriguez Age: 25 yrs Sex: Male : 1990 Arrival Date: 08/16/2016 Time: 21:57 Bed 8 Private MD: NO PRIMARY PHYSICIAN, . Disposition: 08/17/16 02:38 Discharged to Home/Self Care. Impression: Other abdominal pain, Nausea and vomiting, Diarrhea, unspecified, Allergy status to unspecified drugs, medicaments and biological substances status. - Condition is Stable. - Discharge Instructions: Abdominal Pain, Adult, Food Choices to Help Relieve Diarrhea, Adult, Drug Allergy, Nausea and Vomiting. - Prescriptions for Prilosec 20 mg Oral Capsule - take 1 capsule by ORAL route once daily; 10 capsule. ZOFRAN ODT 4 mg - dissolve 1 tablet by ORAL route 4 times per day As needed do not chew, do not swallow whole; 10 tablet. Prednisone 20 mg Oral Tablet - take 2 tablet by ORAL route once daily for 5 days; 10 tablet. - Medication Reconciliation, Local Pharmacy Hours form. - Follow up: Private Physician; When: 2 - 3 days; Reason: Recheck today's complaints, Continuance of care. - Problem is new. - Symptoms have improved. - Notes: USE PREDNISONE INSTRUCTED, DO NOT USE ZOFRAN WE DO NOT KNOW WHAT MEDICATION YOU HAD YOUR REACTION TO. FOLLOW UP WITH YOUR DOCTOR, RETURN TO THE ER IF THE SYMPTOMS WORSEN OR BECOME CONCERNING, FOLLOW UP WITH YOUR DOCTOR IN 2-3 DAYS Historical: - Allergies: no known allergies; - Home Meds: 1. Tylenol 325 mg Oral tab - PMHx: none; - PSHx: gynomastia surgery; - Social history: Smoking status: Patient states was never smoker of tobacco. No barriers to communication noted, The patient speaks fluent Mongolian. - Family history: Pt reports contact with co-workers with recent GI illness.. - : The pt / caregiver states he / she is not on anticoagulants. Home medication list is obtained from the patient. - Exposure Risk Screening:: None identified. Vital Signs: 08/16 21:59 BP 135 / 66; Pulse 67; Resp 18; Temp 97.6(O); Pulse Ox 100% on R/A; Weight 97.52 kg / ct3 214.99 lbs (R); Height 6 ft. 0 in. (182.88 cm) (R); Pain 10/10; 22:42 BP 127 / 73 (auto/); mv5 22:43 Pulse 60 MON; Pulse Ox 100% ; mv5 23:12 BP 116 / 68 (auto/); mv5 23:13 Pulse 58 MON; Pulse Ox 96% ; mv5 23:49 BP 127 / 71 (auto/); mv5 23:50 Pulse 58 MON; Pulse Ox 97% ; mv5 02 00:44 BP 129 / 73 Supine; Pulse 73; Resp 16; Temp 98.6(TE); Pulse Ox 98% ; mv5 00:44 BP 125 / 72 Sitting; Pulse 81; Pulse Ox 100% ; mv5 00:44 BP 112 / 69 Standing; Pulse 85; Pulse Ox 98% ; mv5 00:49 BP 114 / 69 (auto/); mv5 00:50 Pulse 66 MON; Pulse Ox 93% ; mv5 01:33 BP 107 / 58 (auto/); mv5 01:34 Pulse 66 MON; Pulse Ox 96% ; mv5 02:03 BP 111 / 59 (auto/); mv5 02:04 Pulse 58 MON; Pulse Ox 99% ; mv5 02:33 BP 123 / 67 (auto/); mv5 02:33 Pulse 62 MON; Pulse Ox 99% ; mv5 02:41 Temp 98.5(TE); Pain 4/10; mdr 08/16 21:59 Body Mass Index 29.16 (97.52 kg, 182.88 cm) ct3 MDM: 08/16 23:05 Undress patient appropriately for examination ordered. ck7 23:05 IV Saline Lock ordered. ck7 23:05 NS 0.9% 1000 ml IV at bolus once ordered. ck7 23:05 Ondansetron 4 mg IVP once ordered. ck7 23:05 pantoprazole 40 mg IV at bolus once ordered. ck7 23:06 Amylase Ordered. EDMS 23:06 Basic Metabolic Profile Ordered. EDMS 23:06 CBC with Diff Ordered. EDMS 23:06 Lipase Ordered. EDMS 23:06 Liver Profile Ordered. EDMS 23:06 Urinalysis Ordered. EDMS 23:06 Urine Culture Ordered. EDMS 23:06 Abdomen 2 View Ordered. EDMS 23:07 NOTHING BY MOUTH+DIET ordered. EDMS 08/17 00:06 Basic Metabolic Profile Reviewed. ck7 00:06 CBC with Diff Reviewed. ck7 00:06 Urinalysis Reviewed. ck7 00:06 Amylase Reviewed. ck7 00:06 Lipase Reviewed. ck7 00:06 Liver Profile Reviewed. ck7 00:27 Orthostatic VS ordered. ck7 00:27 Fluid Challenge ordered. ck7 01:05 Financial registration complete. [facility] 01:25 Solu-MEDROL 125 mg IVP once ordered. ck7 01:25 diphenhydrAMINE 50 mg IVP once ordered. ck7 01:25 Famotidine 10 mg IVPB once over 30 mins; dilute in 50mL of NS ordered. ck7 01:25 NS 0.9% 500 ml IV at bolus once ordered. ck7 01:38 [facility] Payment Agreement was scanned into [email or web address] and attached to record. [facility] 12:31 T-Sheet-- Draft Copy was scanned into [email or web address] and attached to record. gb Administered Medications: 08/16 23:23 Drug: NS 0.9% 1000 ml [sodium chloride 0.9 % intravenous solution] Route: IV; Rate: mv5 bolus; Site: right antecubital; 08/17 01:17 Follow up: IV Status: Completed infusion mv5 08/16 23:23 Drug: Ondansetron 4 mg [ondansetron HCl 2 mg/mL intravenous solution (2 mL)] Route: mv5 IVP; Site: right antecubital; 23:53 Follow up: Response: No Adverse Reaction mv5 23:23 Drug: pantoprazole 40 mg [pantoprazole 40 mg intravenous solution] Route: IV; Rate: mv5 bolus; Site: right antecubital; 23:53 Follow up: Response: No Adverse Reaction 5 08/17 01:17 Follow up: IV Status: Completed infusion mv5 01:39 Drug: Famotidine 10 mg [famotidine 10 mg/mL intravenous solution] Route: IVPB; Infused mv5 Over: 30 mins; Site: left antecubital; 02:09 Follow up: IV Status: Completed infusion mv5 01:39 Drug: NS 0.9% 500 ml [sodium chloride 0.9 % intravenous solution] Route: IV; Rate: mv5 bolus; Site: left antecubital; 02:30 Follow up: IV Status: Completed infusion mv5 01:40 Drug: Solu-MEDROL 125 mg [Solu-Medrol 500 mg intravenous solution (125 mg)] Route: IVP; mv5 Site: left antecubital; 02:39 Follow up: Response: No Adverse Reaction mv5 01:40 Drug: diphenhydrAMINE 50 mg [diphenhydramine 50 mg/mL injection solution (1 mL)] Route: mv5 IVP; Site: left antecubital; 02:39 Follow up: Response: No Adverse Reaction mv5 Signatures: Dispatcher [employer] EDMigdalia Tristan, Reg Reg gb Dulce Xiong,RN RN rs3 [place] Enriquez, RPA-C [id number] Belkis Fam MeganRN RN mv5 The chart was reviewed and I authenticate all verbal orders and agree with the evaluation and treatment provided.Attachments: 01:38 [facility] Payment Agreement [facility] 12:31 T-Sheet-- Draft Copy Chart Complete MTDD
--- NOTE | 2016-08-19 03:50 | EDDOCDS ---
Nurse's Notes [facility] Name: Kaushik Rodriguez Age: 25 yrs Sex: Male : 1990 Arrival Date: 08/16/2016 Time: 21:57 Bed 8 Private MD: NO PRIMARY PHYSICIAN, . Diagnosis: Other abdominal pain;Nausea and vomiting;Diarrhea, unspecified;Allergy status to unspecified drugs, medicaments and biological substances status Presentation: 08/16 22:08 Presenting complaint: Patient states: woke up with diarrhea and abdominal pain this rs3 morning. no vomiting. Risk factors: the patient reports not having a history of previous torsion. Adult Sepsis Screening: The patient does not have new or worsening altered mentation. Patient's respiratory rate is less than 22. Systolic blood pressure is greater than 100. Patient has a qSOFA score of 0- Negative Sepsis Screen. Suicide/Homicide risk assessment- the patient denies having any suicidal and/or homicidal ideations and does not present with any other emotional, behavioral or mental health complaints. Status: Patient is not a care services manager or dependent. Transition of care: patient was not received from another setting of care. 22:08 Acuity: ADEEL Level 3 rs3 22:08 Method Of Arrival: Walkin/Carried/Asstd rs3 Triage Assessment: 22:10 General: Appears in no apparent distress. Pain: Location: abdomen. HIV screening NA for rs3 this visit Offered previously. GI: Reports lower abdominal pain. Historical: - Allergies: no known allergies; - Home Meds: 1. Tylenol 325 mg Oral tab - PMHx: none; - PSHx: gynomastia surgery; - Social history: Smoking status: Patient states was never smoker of tobacco. No barriers to communication noted, The patient speaks fluent Jamaican. - Family history: Pt reports contact with co-workers with recent GI illness.. - : The pt / caregiver states he / she is not on anticoagulants. Home medication list is obtained from the patient. - Exposure Risk Screening:: None identified. Screenin:46 Screening information is obtained from the patient. Fall risk: No risks identified. mv5 Assistance ADL's: requires no assistance with activities of daily living. Abuse/DV Screen: The patient / caregiver reports he/she is: not in a situation that causes fear, pain or injury. Nutritional screening: No deficits noted. Advance Directives: There is no active DNR order. home support is adequate. Assessment: 22:46 General: Appears in no apparent distress, well nourished, well groomed. Pain: Location: mv5 right upper quadrant and left upper quadrant Pain currently is 6 out of 10 on a pain scale. Neurological: Level of Consciousness is awake, alert, Oriented to person, place, time. Cardiovascular: Capillary refill < 3 seconds. Respiratory: Airway is patent Respiratory effort is even, unlabored, Respiratory pattern is regular, symmetrical. GI: Abdomen is flat, Pt is actively vomiting Bowel sounds present X 4 quads. Abd is soft X 4 quads Abd is tender to palpation in right upper quadrant and left upper quadrant. : No deficits noted. Derm: Skin is pink, warm & dry. 23:29 General: Appears in no apparent distress, Meds given as ordered. Pt to xray and mv5 returned without incident. Family at bedside.. Respiratory: No deficits noted. Derm: Skin is pink, warm & dry. 08/17 00:58 General: Appears in no apparent distress, Provider in to discuss findings and plan of mv5 care.. Neurological: Level of Consciousness is awake, alert. Respiratory: Airway is patent Respiratory effort is even, unlabored, Respiratory pattern is regular, symmetrical. Derm: Skin is pink, warm & dry. 01:40 General: Appears in no apparent distress. General: Upon dressing after discharge pt's mv5 noted redness and hives on pt's neck/chest and near axilla. Provider called to bedside. Orders received, meds given as ordered.. Respiratory: Airway is patent Respiratory effort is even, unlabored, Respiratory pattern is regular, symmetrical, Breath sounds are clear bilaterally. Derm: Rash noted that is itchy, Rash concentrated around neck/axilla/arms and pt reports on legs/groin. 02:13 General: Appears in no apparent distress, to be sleeping. Respiratory: Airway is patent mv5 Respiratory effort is even, unlabored, Respiratory pattern is regular, symmetrical. Derm: Skin is pink, warm & dry. Rash noted that is significantly improved. 02:36 General: Appears in no apparent distress, comfortable, Behavior is cooperative, mv5 pleasant. Neurological: Level of Consciousness is awake, alert. Respiratory: Airway is patent Respiratory effort is even, unlabored, Respiratory pattern is regular, symmetrical. Derm: No deficits noted. Vital Signs: 02/12 21:59 BP 135 / 66; Pulse 67; Resp 18; Temp 97.6(O); Pulse Ox 100% on R/A; Weight 97.52 kg ct3 (R); Height 6 ft. 0 in. (182.88 cm) (R); Pain 10/10; 22:42 BP 127 / 73 (auto/); mv5 22:43 Pulse 60 MON; Pulse Ox 100% ; mv5 23:12 BP 116 / 68 (auto/); mv5 23:13 Pulse 58 MON; Pulse Ox 96% ; mv5 23:49 BP 127 / 71 (auto/); mv5 23:50 Pulse 58 MON; Pulse Ox 97% ; mv5 02/13 00:44 BP 129 / 73 Supine; Pulse 73; Resp 16; Temp 98.6(TE); Pulse Ox 98% ; mv5 00:44 BP 125 / 72 Sitting; Pulse 81; Pulse Ox 100% ; mv5 00:44 BP 112 / 69 Standing; Pulse 85; Pulse Ox 98% ; mv5 00:49 BP 114 / 69 (auto/); mv5 00:50 Pulse 66 MON; Pulse Ox 93% ; mv5 01:33 BP 107 / 58 (auto/); mv5 01:34 Pulse 66 MON; Pulse Ox 96% ; mv5 02:03 BP 111 / 59 (auto/); mv5 02:04 Pulse 58 MON; Pulse Ox 99% ; mv5 02:33 BP 123 / 67 (auto/); mv5 02:33 Pulse 62 MON; Pulse Ox 99% ; mv5 02:41 Temp 98.5(TE); Pain 4/10; mdr 02/12 21:59 Body Mass Index 29.16 (97.52 kg, 182.88 cm) ct3 Vitals: 02/12 21:59 Log In Time: August 16, 2016 at 21:57. ct3 ED Course: 21:58 Patient visited by Trudy Lóepz PCA. ct3 21:58 Patient moved to Waiting ct3 21:59 NO PRIMARY PHYSICIAN, . is Private Physician. ct3 21:59 Patient moved to Pre RCE ct3 22:09 Triage Initiated rs3 22:36 Annette Pelaez, RN is Primary Nurse. kc3 22:36 Linn Villeda,WOLF is Primary Nurse. kc3 22:36 Patient moved to 8 kc3 22:40 Boston Enriquez RPA-C is PHCP. ck7 22:40 Tawanda Panda DO is Attending Physician. ck7 22:46 Patient visited by iLnn Villeda RN. mv5 22:46 The patient / caregiver is instructed regarding the plan of care and ED course. mv5 22:47 Primary Nurse role handed off by Annette Pelaez RN ar3 22:47 Patient visited by Boston Enriquez RPA-C. ck7 23:24 Amylase Sent. mv5 23:24 Basic Metabolic Profile Sent. mv5 23:24 CBC with Diff Sent. mv5 23:24 Lipase Sent. mv5 23:24 Liver Profile Sent. mv5 23:24 Inserted saline lock: 18 gauge in right antecubital area and blood collected. The mv5 patient tolerated the procedure well. 23:29 Patient visited by Linn Villeda RN. mv5 23:53 Urinalysis Sent. mv5 23:53 Urine Culture Sent. mv5 0213 00:04 Patient visited by Bostno Enriquez RPA-C. ck7 00:37 Patient visited by Lukasz Charles PCA. mdr 00:37 Diet: Patient given water. mdr 01:14 Discontinued intact, bleeding controlled, pressure dressing applied, No mv5 redness/swelling at site. No procedures done that require assistance. 01:38 [facility] Payment Agreement was scanned into [employer] and attached to record. [facility] 01:43 Patient name changed from Kaushik\S\\S\Leclaire\S\ to Kaushik\S\David\S\Leclaire. EDMS 01:43 Patient visited by Boston Enriquez RPA-C. ck7 01:56 Patient visited by Linn Villeda RN. mv5 02:04 Discontinued intact, bleeding controlled, pressure dressing applied, No mv5 redness/swelling at site. 02:26 Patient visited by Linn Villeda RN. mv5 02:41 Patient visited by Lukasz Charles PCA. mdr 08:10 Abdomen 2 View Returned. EDMS 12:31 T-Sheet-- Draft Copy was scanned into [employer] and attached to record. gb Administered Medications: 08/16 23:23 Drug: NS 0.9% 1000 ml [sodium chloride 0.9 % intravenous solution] Route: IV; Rate: mv5 bolus; Site: right antecubital; 08/17 01:17 Follow up: IV Status: Completed infusion mv5 08/16 23:23 Drug: Ondansetron 4 mg [ondansetron HCl 2 mg/mL intravenous solution (2 mL)] Route: mv5 IVP; Site: right antecubital; 23:53 Follow up: Response: No Adverse Reaction mv5 23:23 Drug: pantoprazole 40 mg [pantoprazole 40 mg intravenous solution] Route: IV; Rate: mv5 bolus; Site: right antecubital; 23:53 Follow up: Response: No Adverse Reaction mv5 08/17 01:17 Follow up: IV Status: Completed infusion mv5 01:39 Drug: Famotidine 10 mg [famotidine 10 mg/mL intravenous solution] Route: IVPB; Infused mv5 Over: 30 mins; Site: left antecubital; 02:09 Follow up: IV Status: Completed infusion mv5 01:39 Drug: NS 0.9% 500 ml [sodium chloride 0.9 % intravenous solution] Route: IV; Rate: mv5 bolus; Site: left antecubital; 02:30 Follow up: IV Status: Completed infusion mv5 01:40 Drug: Solu-MEDROL 125 mg [Solu-Medrol 500 mg intravenous solution (125 mg)] Route: IVP; mv5 Site: left antecubital; 02:39 Follow up: Response: No Adverse Reaction mv5 01:40 Drug: diphenhydrAMINE 50 mg [diphenhydramine 50 mg/mL injection solution (1 mL)] Route: mv5 IVP; Site: left antecubital; 02:39 Follow up: Response: No Adverse Reaction mv5 Order Results: Lab Order: Amylase; SPEC'M 08/16/16 23:20 Test: AMYLASE; Value: 58; Range: 25-115; Units: U/L; Status: F Lab Order: Basic Metabolic Profile; SPEC'M 08/16/16 23:20 Test: GLUCOSE, FASTING; Value: 112; Range: 70-105; Abnormal: Above high normal; Units: MG/DL; Status: F Test: BLOOD UREA NITROGEN; Value: 14; Range: 7-18; Units: MG/DL; Status: F Test: CREATININE FOR GFR; Value: 0.89; Range: 0.70-1.30; Units: MG/DL; Status: F Test: GLOMERULAR FILTRATION RATE; Value: > 60.0; Range: >60; Status: F Test: SODIUM LEVEL; Value: 141; Range: 136-145; Units: MEQ/L; Status: F Test: POTASSIUM SERUM; Value: 3.6; Range: 3.5-5.1; Units: MEQ/L; Status: F Test: CHLORIDE LEVEL; Value: 105; Range: 98-107; Units: MEQ/L; Status: F Test: CARBON DIOXIDE LEVEL; Value: 28; Range: 21-32; Units: MEQ/L; Status: F Test: ANION GAP; Value: 8; Range: 8-16; Units: MEQ/L; Status: F Test: CALCIUM LEVEL; Value: 9.0; Range: 8.5-10.1; Units: MG/DL; Status: F Test Note: ; Units are mL/min/1.73 m2 Chronic Kidney Disease Staging per NKF: Stage I & II GFR >=60 Normal to Mildly Decreased Stage III GFR 30-59 Moderately Decreased Stage IV GFR 15-29 Severely Decreased Stage V GFR <15 Very Little GFR Left ESRD GFR <15 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 Lab Order: CBC with Diff; SPEC'M 08/16/16 23:20 Test: WHITE BLOOD COUNT; Value: 14.2; Range: 4.0-10.0; Abnormal: Above high normal; Units: K/mm3; Status: F Test: RED BLOOD COUNT; Value: 5.22; Range: 4.30-6.10; Units: M/mm3; Status: F Test: HEMOGLOBIN; Value: 15.9; Range: 14.0-18.0; Units: g/dl; Status: F Test: HEMATOCRIT; Value: 46.8; Range: 42.0-52.0; Units: %; Status: F Test: MEAN CORPUSCULAR VOLUME; Value: 89.7; Range: 80.0-96.0; Units: fl; Status: F Test: MEAN CORPUSCULAR HEMOGLOBIN; Value: 30.4; Range: 27.0-33.0; Units: pg; Status: F Test: MEAN CORPUSCULAR HGB CONC; Value: 33.9; Range: 32.0-36.5; Units: g/dl; Status: F Test: RED CELL DISTRIBUTION WIDTH; Value: 12.7; Range: 11.5-14.5; Units: %; Status: F Test: PLATELET COUNT, AUTOMATED; Value: 259; Range: 150-450; Units: k/mm3; Status: F Test: NEUTROPHILS %; Value: 86.8; Range: 36.0-66.0; Abnormal: Above high normal; Units: %; Status: F Test: LYMPH %; Value: 7.6; Range: 24.0-44.0; Abnormal: Below low normal; Units: %; Status: F Test: MONO %; Value: 3.5; Range: 0.0-5.0; Units: %; Status: F Test: EOS %; Value: 1.4; Range: 0.0-3.0; Units: %; Status: F Test: BASO %; Value: 0.1; Range: 0.0-1.0; Units: %; Status: F Test: LARGE UNSTAINED CELL %; Value: 0.6; Range: 0.0-4.0; Units: %; Status: F Test: NEUTROPHILS #; Value: 12.3; Range: 1.8-7.7; Abnormal: Above high normal; Units: K/mm3; Status: F Test: LYMPH #; Value: 1.2; Range: 1.5-6.5; Abnormal: Below low normal; Units: K/mm3; Status: F Test: MONO #; Value: 0.5; Range: 0.0-0.8; Units: K/mm3; Status: F Test: EOS #; Value: 0.2; Range: 0.0-0.50; Units: K/mm3; Status: F Test: BASO #; Value: 0.0; Range: 0.0-0.2; Units: K/mm3; Status: F Test: LARGE UNSTAINED CELL #; Value: 0.1; Range: 0.0-0.4; Units: K/mm3; Status: F Lab Order: Lipase; SPEC'M 08/16/16 23:20 Test: LIPASE; Value: 88; Range: 73-393; Units: U/L; Status: F Lab Order: Liver Profile; SPEC'M 08/16/16 23:20 Test: AST/SGOT; Value: 20; Range: 15-37; Units: U/L; Status: F Test: ALT/SGPT; Value: 45; Range: 12-78; Units: U/L; Status: F Test: ALKALINE PHOSPHATASE; Value: 71; Range: 45-117; Units: U/L; Status: F Test: BILIRUBIN,TOTAL; Value: 0.5; Range: 0.2-1.0; Units: MG/DL; Status: F Test: BILIRUBIN,DIRECT; Value: 0.1; Range: 0.0-0.2; Units: MG/DL; Status: F Test: TOTAL PROTEIN; Value: 8.1; Range: 6.4-8.2; Units: GM/DL; Status: F Test: ALBUMIN; Value: 4.3; Range: 3.2-5.2; Units: GM/DL; Status: F Test: ALBUMIN/GLOBULIN RATIO; Value: 1.13; Range: 1.00-1.93; Status: F Lab Order: Urinalysis; [facility]'M 08/16/16 23:20 Test: APPEARANCE, URINE; Value: HAZY; Range: CLEAR; Status: F Test: COLOR, URINE; Value: YELLOW; Range: YELLOW; Status: F Test: PH,URINE; Value: 5.0; Range: 5.0-9.0; Units: UNITS; Status: F Test: SPECIFIC GRAVITY URINE AUTO; Value: 1.027; Range: 1.002-1.035; Status: F Test: PROTEIN, URINE AUTO; Value: NEGATIVE; Range: NEGATIVE; Units: mg/dL; Status: F Test: GLUCOSE, URINE (UA) AUTO; Value: NEGATIVE; Range: NEGATIVE; Units: mg/dL; Status: F Test: KETONE, URINE AUTO; Value: 1+; Range: NEGATIVE; Abnormal: Above high normal; Units: mg/dL; Status: F Test: UROBILINOGEN, URINE AUTO; Value: 0.2; Range: 0.0-2.0; Units: mg/dL; Status: F Test: BILIRUBIN, URINE AUTO; Value: NEGATIVE; Range: NEGATIVE; Status: F Test: NITRITE, URINE AUTO; Value: NEGATIVE; Range: NEGATIVE; Status: F Test: LEUKOCYTE ESTERASE, URINE AUTO; Value: NEGATIVE; Range: NEGATIVE; Status: F Test: BLOOD, URINE BLOOD; Value: 1+; Range: NEGATIVE; Abnormal: Above high normal; Status: F Test: WBC, URINE AUTO; Value: 5; Range: 0-3; Abnormal: Above high normal; Units: /HPF; Status: F Test: RBC, URINE AUTO; Value: 2; Range: 0-3; Units: /HPF; Status: F Test: BACTERIA, URINE AUTO; Value: NEGATIVE; Range: NEGATIVE; Status: F Test: SQUAMOUS EPITHELIAL CELL UR AU; Value: 0; Range: 0-6; Units: /HPF; Status: F Test: MUCUS, URINE; Value: MODERATE; Range: NEGATIVE; Status: F Test: HYALINE CAST, URINE AUTO; Value: 0; Range: 0-1; Units: /LPF; Status: F Lab Order: Urine Culture; SPEC'M 08/16/16 23:20 Test: URINE CULTURE; Value: <EXTERNAL COMMENT eCWMed> FULL REPORT IN LAB NOTES (eCW and Medent).; Status: F Test: URINE CULTURE; Value: URINE CULTURE RESULT NO GROWTH; Status: F Radiology Order: Abdomen 2 View Test: Abdomen 2 View REASON FOR EXAMINATION: Abdomen Pain; Clinical: Acute abdominal pain.; ; Technique: Upright view of the chest with supine and upright views of the; abdomen and pelvis.; ; Findings: Frontal upright view of the chest demonstrates no acute; cardiopulmonary process or free air below the diaphragm to suspect; pneumoperitoneum. Supine and upright views of the abdomen and pelvis demonstrate; nonspecific bowel gas pattern without obstruction or perforation. No; organomegaly. No abnormal calcifications. Skeletal structures normal for age.; ; Impression:; Nonspecific bowel gas pattern.; ; ; Signed by; Ozzie Barragan MD 08/17/2016 07:59 A; Outcome: 01:03 Discharge ordered by Provider. ck7 01:14 Discharge Assessment: Patient awake, alert and oriented x 3. No cognitive and/or mv5 functional deficits noted. Patient verbalized understanding of disposition instructions. patient administered narcotics - no. The following High Risk Discharge criteria are identified: None. Discharged to home. Condition: stable. Demonstrated understanding of Pt was receptive of discharge instructions/ teaching. No special radiology studies were completed. Property sent home with patient. 02:38 Discharge ordered by Provider. ck7 02:48 Discharge Assessment: Patient awake, alert and oriented x 3. No cognitive and/or mv5 functional deficits noted. Patient verbalized understanding of disposition instructions. patient administered narcotics - no. The following High Risk Discharge criteria are identified: None. Discharged to home with family. Condition: stable. Demonstrated understanding of Pt was receptive of discharge instructions/ teaching. No special radiology studies were completed. Property sent home with patient. 02:49 Patient left the ED. mv5 Signatures: Dispatcher [employer] EDMS Migdalia Stephenson, Reg Reg gb Dulce Xiong,RN RN rs3 Lilia Herzog, CLINICAL TRIALS SYSTEMS ADMINISTRATOR CLINICAL TRIALS SYSTEMS ADMINISTRATOR ar3 Trudy López, CLINICAL TRIALS SYSTEMS ADMINISTRATOR CLINICAL TRIALS SYSTEMS ADMINISTRATOR ct3 Boston Enriquez, RPA-C RPA-Cck7 Belkis Fam Lukasz Watson, CLINICAL TRIALS SYSTEMS ADMINISTRATOR CLINICAL TRIALS SYSTEMS ADMINISTRATOR Bonnie Arroyo,RN RN kc3 Linn Villeda,RN RN mv5 Corrections: (The following items were deleted from the chart) 02:38 01:16 Patient left the ED. mv5 mv5 Chart Complete MTDD
--- NOTE | 2016-08-19 03:51 | EDDOCDS ---
Physician Documentation [facility] Name: Kaushik Rodriguez Age: 25 yrs Sex: Male : 1990 Arrival Date: 08/16/2016 Time: 21:57 Bed 8 Private MD: NO PRIMARY PHYSICIAN, . Disposition: 08/17/16 02:38 Discharged to Home/Self Care. Impression: Other abdominal pain, Nausea and vomiting, Diarrhea, unspecified, Allergy status to unspecified drugs, medicaments and biological substances status. - Condition is Stable. - Discharge Instructions: Abdominal Pain, Adult, Food Choices to Help Relieve Diarrhea, Adult, Drug Allergy, Nausea and Vomiting. - Prescriptions for Prilosec 20 mg Oral Capsule - take 1 capsule by ORAL route once daily; 10 capsule. ZOFRAN ODT 4 mg - dissolve 1 tablet by ORAL route 4 times per day As needed do not chew, do not swallow whole; 10 tablet. Prednisone 20 mg Oral Tablet - take 2 tablet by ORAL route once daily for 5 days; 10 tablet. - Medication Reconciliation, Local Pharmacy Hours form. - Follow up: Private Physician; When: 2 - 3 days; Reason: Recheck today's complaints, Continuance of care. - Problem is new. - Symptoms have improved. - Notes: USE PREDNISONE INSTRUCTED, DO NOT USE ZOFRAN WE DO NOT KNOW WHAT MEDICATION YOU HAD YOUR REACTION TO. FOLLOW UP WITH YOUR DOCTOR, RETURN TO THE ER IF THE SYMPTOMS WORSEN OR BECOME CONCERNING, FOLLOW UP WITH YOUR DOCTOR IN 2-3 DAYS Historical: - Allergies: no known allergies; - Home Meds: 1. Tylenol 325 mg Oral tab - PMHx: none; - PSHx: gynomastia surgery; - Social history: Smoking status: Patient states was never smoker of tobacco. No barriers to communication noted, The patient speaks fluent Hebrew. - Family history: Pt reports contact with co-workers with recent GI illness.. - : The pt / caregiver states he / she is not on anticoagulants. Home medication list is obtained from the patient. - Exposure Risk Screening:: None identified. Vital Signs: 08/16 21:59 BP 135 / 66; Pulse 67; Resp 18; Temp 97.6(O); Pulse Ox 100% on R/A; Weight 97.52 kg / ct3 214.99 lbs (R); Height 6 ft. 0 in. (182.88 cm) (R); Pain 10/10; 22:42 BP 127 / 73 (auto/); mv5 22:43 Pulse 60 MON; Pulse Ox 100% ; mv5 23:12 BP 116 / 68 (auto/); mv5 23:13 Pulse 58 MON; Pulse Ox 96% ; mv5 23:49 BP 127 / 71 (auto/); mv5 23:50 Pulse 58 MON; Pulse Ox 97% ; mv5 02 00:44 BP 129 / 73 Supine; Pulse 73; Resp 16; Temp 98.6(TE); Pulse Ox 98% ; mv5 00:44 BP 125 / 72 Sitting; Pulse 81; Pulse Ox 100% ; mv5 00:44 BP 112 / 69 Standing; Pulse 85; Pulse Ox 98% ; mv5 00:49 BP 114 / 69 (auto/); mv5 00:50 Pulse 66 MON; Pulse Ox 93% ; mv5 01:33 BP 107 / 58 (auto/); mv5 01:34 Pulse 66 MON; Pulse Ox 96% ; mv5 02:03 BP 111 / 59 (auto/); mv5 02:04 Pulse 58 MON; Pulse Ox 99% ; mv5 02:33 BP 123 / 67 (auto/); mv5 02:33 Pulse 62 MON; Pulse Ox 99% ; mv5 02:41 Temp 98.5(TE); Pain 4/10; mdr 08/16 21:59 Body Mass Index 29.16 (97.52 kg, 182.88 cm) ct3 MDM: 08/16 23:05 Undress patient appropriately for examination ordered. ck7 23:05 IV Saline Lock ordered. ck7 23:05 NS 0.9% 1000 ml IV at bolus once ordered. ck7 23:05 Ondansetron 4 mg IVP once ordered. ck7 23:05 pantoprazole 40 mg IV at bolus once ordered. ck7 23:06 Amylase Ordered. EDMS 23:06 Basic Metabolic Profile Ordered. EDMS 23:06 CBC with Diff Ordered. EDMS 23:06 Lipase Ordered. EDMS 23:06 Liver Profile Ordered. EDMS 23:06 Urinalysis Ordered. EDMS 23:06 Urine Culture Ordered. EDMS 23:06 Abdomen 2 View Ordered. EDMS 23:07 NOTHING BY MOUTH+DIET ordered. EDMS 08/17 00:06 Basic Metabolic Profile Reviewed. ck7 00:06 CBC with Diff Reviewed. ck7 00:06 Urinalysis Reviewed. ck7 00:06 Amylase Reviewed. ck7 00:06 Lipase Reviewed. ck7 00:06 Liver Profile Reviewed. ck7 00:27 Orthostatic VS ordered. ck7 00:27 Fluid Challenge ordered. ck7 01:05 Financial registration complete. [facility] 01:25 Solu-MEDROL 125 mg IVP once ordered. ck7 01:25 diphenhydrAMINE 50 mg IVP once ordered. ck7 01:25 Famotidine 10 mg IVPB once over 30 mins; dilute in 50mL of NS ordered. ck7 01:25 NS 0.9% 500 ml IV at bolus once ordered. ck7 01:38 [facility] [place] Payment Agreement was scanned into [email or web address] and attached to record. [facility] 12:31 T-Sheet-- Draft Copy was scanned into [email or web address] and attached to record. gb Administered Medications: 08/16 23:23 Drug: NS 0.9% 1000 ml [sodium chloride 0.9 % intravenous solution] Route: IV; Rate: mv5 bolus; Site: right antecubital; 08/17 01:17 Follow up: IV Status: Completed infusion mv5 08/16 23:23 Drug: Ondansetron 4 mg [ondansetron HCl 2 mg/mL intravenous solution (2 mL)] Route: mv5 IVP; Site: right antecubital; 23:53 Follow up: Response: No Adverse Reaction mv5 23:23 Drug: pantoprazole 40 mg [pantoprazole 40 mg intravenous solution] Route: IV; Rate: mv5 bolus; Site: right antecubital; 23:53 Follow up: Response: No Adverse Reaction 5 08/17 01:17 Follow up: IV Status: Completed infusion mv5 01:39 Drug: Famotidine 10 mg [famotidine 10 mg/mL intravenous solution] Route: IVPB; Infused mv5 Over: 30 mins; Site: left antecubital; 02:09 Follow up: IV Status: Completed infusion mv5 01:39 Drug: NS 0.9% 500 ml [sodium chloride 0.9 % intravenous solution] Route: IV; Rate: mv5 bolus; Site: left antecubital; 02:30 Follow up: IV Status: Completed infusion mv5 01:40 Drug: Solu-MEDROL 125 mg [Solu-Medrol 500 mg intravenous solution (125 mg)] Route: IVP; mv5 Site: left antecubital; 02:39 Follow up: Response: No Adverse Reaction mv5 01:40 Drug: diphenhydrAMINE 50 mg [diphenhydramine 50 mg/mL injection solution (1 mL)] Route: mv5 IVP; Site: left antecubital; 02:39 Follow up: Response: No Adverse Reaction mv5 Signatures: Dispatcher [employer] EDMigdalia Tristan, Reg Reg gb Dulce Xiong,RN RN rs3 [place] Enriquez, RPA-C RPA-Cck7 Belkis Fam MeganRN RN mv5 The chart was reviewed and I authenticate all verbal orders and agree with the evaluation and treatment provided.Attachments: 01:38 [facility] Payment Agreement [facility] 12:31 T-Sheet-- Draft Copy Chart Complete MTDD
== END 2016-08-17 02:49 | disposition home or self-care (01) ==
LOC: M ED 21:57
DX: T78.40XA Allergy, unspecified, initial encounter (principal); R11.2 Nausea with vomiting, unspecified; R19.7 Diarrhea, unspecified
CPT/HCPCS: 36415; 74020; 80048; 80076; 81001; 82150; 83690; 85025; 87086; 96361; 96365; 96375; 99284; C9113; J1200; J2405; J2930

== ENCOUNTER → 2018-11-13 | Outpatient (CLI) | payer OTHER ==
--- NOTE | 2018-11-13 13:40 | REP ---
LEFT KNEE: FIVE VIEWS. HISTORY: Pain after a fall. FINDINGS: Five views of the left knee show a normal fabella. There is no evidence of fracture or subluxation. IMPRESSION: Negative radiographs of the left knee. No fracture seen. Electronically Signed by Bk Saucedo MD 11/13/2018 01:44 P
== END ==
LOC: M LRY 11:47
PROVIDERS: ATTEND Nurse Practitioner Family
DX: S89.92XA Unspecified injury of left lower leg, initial encounter (principal); Y92.89 Other specified places as the place of occurrence of the external cause; Y93.89 Activity, other specified; Y99.8 Other external cause status; X58.XXXA Exposure to other specified factors, initial encounter

== ENCOUNTER → 2020-06-15 | Outpatient (CLI) | payer OTHER | LOC: M LABSMTC 08:32 → EEVIPCON 08:32 | PROVIDERS: ATTEND Family Medicine | DX: Z11.59 Encounter for screening for other viral diseases (principal) ==